=== PATIENT | female | born 1995 ===

== ENCOUNTER 2024-12-07 10:58 | Outpatient (CLI) | payer OTHER | END 2024-12-07 10:59 | disposition home or self-care (01) | LOC: PRENATAL 10:58 | PROVIDERS: ATTEND Obstetrics & Gynecology Maternal & Fetal Medicine | DX: O44.00 Complete placenta previa NOS or without hemorrhage, unspecified trimester (principal); O28.3 Abnormal ultrasonic finding on antenatal screening of mother; Z3A.17 17 weeks gestation of pregnancy ==